=== PATIENT | female | born 1955 | race Caucasian/White ===

== ENCOUNTER 2022-12-29 09:11 | Day surgery (SDC) | payer OTHER, MEDICARE ==
[2022-12-23 09:49] LABS: Absolute Lymphocytes (CBC) 1.8 K/uL (0.7-4.9); Hematocrit 40.6 % (36.0-45.0); Lymphocytes % 27.4 % (15.3-44.8); MCV 90.8 fL (80-100); MPV 6.5 fL (7.6-11.3); Platelets 341 thou/uL (152-406); RBC Red Blood Cell Count 4.47 M/uL (3.86-4.86)
--- NOTE | 2022-12-23 09:50 | EKG ---
Test Date: 2022-12-23 Test Time: 09:39:02 Construction Safety Manager: LAVELL MEASUREMENT RESULTS: Intervals: Rate: 68 DC: 146 QRSD: 78 QT: 404 QTc: 429 [place]: P: 19 DC: 146 QRS: 10 T: 29 INTERPRETIVE STATEMENTS: Normal sinus rhythm Low voltage QRS Cannot rule out Anterior infarct, age undetermined Abnormal ECG No previous ECG available for comparison Electronically Signed On 12-23-22 09:46:42 CDT by Joseph Carmichael
[2022-12-23 09:56] LABS: Protime INR 0.93
[2022-12-23 10:03] LABS: Potassium 3.9 mEq/L (3.5-5.1)
--- NOTE | 2022-12-23 10:15 | RAD REPORT ---
EXAM DESCRIPTION: RAD - Chest Pa And Lat (2 Views) - 12/23/2022 10:03 am CLINICAL HISTORY: PRE OP Chest pain. COMPARISON: <Comparisons> FINDINGS: The lungs are clear. The heart is normal in size. No displaced fractures. IMPRESSION: No acute or concerning finding suspected. The USPSTF recommends annual screening for lung cancer with low-dose CT (LDCT) in adults aged 50 to 80 years who have a 20 pack-year smoking history and currently smoke or have quit within the past 15 years.
[~2022-12-29 09:11] MED LIST: BUPIVACAINE 0.25% PF 10 ML VIAL ONE
[2022-12-29] MEDS ORDERED: CEFAZOLIN SODIUM 2 GM/VIAL ONE (09:39)
[2022-12-29] MEDS ORDERED: NA CHLORIDE 0.9% 1,000 ML ONE (09:40)
[2022-12-29] MEDS ORDERED: propofoL 200 MG/20 ML VIAL IV ONE (10:26)
[2022-12-29] MEDS ORDERED: FENTANYL CITR 100 MCG/2 ML ONE (10:26)
[2022-12-29] MEDS ORDERED: LIDOCAINE 2% MPF 5 ML VIAL ONE (10:26)
[2022-12-29] MEDS ORDERED: ONDANSETRON 4 MG/2 ML VIAL ONE (10:26)
[2022-12-29] MEDS ORDERED: MIDAZOLAM HCL 2 MG/2 ML INJ ONE (10:26)
[2022-12-29] MEDS ORDERED: KETOROLAC 30 MG/ML INJ ONE (10:26)
[2022-12-29] MEDS ORDERED: METOCLOPRAMIDE 10 MG/2mL INJ ONE (11:28)
--- NOTE | 2022-12-29 12:08 | P.BOP ---
Preoperative diagnosis: left carpal tunnel syndrome Postoperative diagnosis: same Primary procedure: Left open carpal tunnel release Rug Renovator: NONE,NONE Estimated blood loss: 3 cc Specimen: none Findings: see dictation Anesthesia: General Complications: None Implants: none Fluids & blood products: per anesthesia record Transferred to: Recovery Room Condition: Good
--- NOTE | 2022-12-29 12:10 | P.OP ---
Preoperative diagnosis: left carpal tunnel syndrome Postoperative diagnosis: same Primary procedure: Left open carpal tunnel release Anesthesia: general LMA Estimated blood loss: 3 cc Specimen: none Findings: see dictation Operative Technique: Reason for Surgery: The patient had physical exam findings as well as EMG findings consistent with left carpal tunnel syndrome. I discussed with the patient at length risks and benefits associated with the procedure. They expressed understanding and elected proceed with operative treatment. Description of Procedure: After informed consent was obtained the patient was identified in the preoperative holding area. The left upper extremity was marked patient. Patient then brought back to the operating room transferred the operative table in supine fashion and placed under anesthesia. The left upper extremity was exsanguinated and the tourniquet was inflated to 250 mmHg. Approximately a 3 cm longitudinal incision was made just ulnar to the thenar crease. Dissection was then taken down to the palmar fascia which was identified. A [place] elevator was then placed just deep to the palmar fascia to protect the median nerve at all times. A 15 blade was then used to release the palmar fascia and transverse carpal ligament leaving the [place]den elevator to protect the nerve at all times. Any remaining fascial bands were then released using a blunt tip Metzenbaum scissor. The tips were him superficially to protect the median nerve at all times. The wound was then irrigated thoroughly with normal saline. The skin was approximated using a 5-0 Prolene. Sterile dressings were applied and patient was awakened and transferred to PACU in stable condition. Postoperative plan: The patient will follow-up in 1 to 2 weeks for wound check and suture removal. They may begin to work on range of motion exercises at this time. Complications: None Implants: none Fluids & blood products: per anesthesia record Transferred to: Recovery Room Condition: Good
[2022-12-29 13:26] VITALS: BP 150/79; TEMP 96.5; O2SAT 99
== END 2022-12-29 13:20 | disposition home or self-care (01) ==
LOC: OR 09:11
PROVIDERS: ATTEND Orthopaedic Surgery Sports Medicine
PROC: 01N50ZZ Release Median Nerve, Open Approach (ICD-10-PCS; principal; 2022-12-29 11:00)
DX: G56.02 Carpal tunnel syndrome, left upper limb (principal); M86.02 Acute hematogenous osteomyelitis, humerus; E11.9 Type 2 diabetes mellitus without complications; E78.00 Pure hypercholesterolemia, unspecified; I10 Essential (primary) hypertension; M85.80 Other specified disorders of bone density and structure, unspecified site
CPT/HCPCS: 93005; 85025; 80048; 36415; 85610; 82947; 85730; 71046; 64721; J2704; J2765; J2001; J2250; J3010; J2405; J7030

== ENCOUNTER 2023-01-28 09:28 | Day surgery (SDC) | payer OTHER, MEDICARE ==
[2023-01-25 09:06] LABS: Absolute Lymphocytes (CBC) 1.6 K/uL (0.7-4.9); Hematocrit 39.9 % (36.0-45.0); Lymphocytes % 25.4 % (15.3-44.8); MCV 91.6 fL (80-100); MPV 6.8 fL (7.6-11.3); Platelets 323 thou/uL (152-406); RBC Red Blood Cell Count 4.36 M/uL (3.86-4.86)
[2023-01-25 09:10] LABS: Protime INR 0.89
[2023-01-28] MEDS ORDERED: NA CHLORIDE 0.9% 1,000 ML ONE (09:36)
[2023-01-28] MEDS ORDERED: CEFAZOLIN SODIUM 1 GM/VIAL ONE ×2 (09:37→10:22)
[2023-01-28] MEDS ORDERED: BUPIVACAINE 0.25% PF 10 ML VIAL ONE (09:45)
[2023-01-28] MEDS ORDERED: FENTANYL CITR 100 MCG/2 ML ONE (09:54)
[2023-01-28] MEDS ORDERED: ONDANSETRON 4 MG/2 ML VIAL ONE (09:54)
[2023-01-28] MEDS ORDERED: propofoL 200 MG/20 ML VIAL IV ONE (09:54)
[2023-01-28] MEDS ORDERED: LIDOCAINE 2% MPF 5 ML VIAL ONE (09:54)
[2023-01-28] MEDS ORDERED: EPHEDRINE SULF 50 MG/ML VIAL ONE (10:28)
--- NOTE | 2023-01-28 10:59 | P.BOP ---
Preoperative diagnosis: right carpal tunnel syndrome Postoperative diagnosis: same Primary procedure: right open carpal tunnel release Electronics Inspector: NONE,NONE Estimated blood loss: 3 cc Specimen: none Findings: see dictation Anesthesia: General Complications: None Implants: none Fluids & blood products: per anesthesia record; TT: 13 mins @ 250 mmHg Transferred to: Recovery Room Condition: Good
--- NOTE | 2023-01-28 11:01 | P.OP ---
Preoperative diagnosis: right carpal tunnel syndrome Postoperative diagnosis: same Primary procedure: right open carpal tunnel release Anesthesia: general LMA Estimated blood loss: 3 cc Specimen: none Findings: see dictation Operative Technique: Reason for Surgery: Renetta had physical exam findings as well as EMG findings consistent with right carpal tunnel syndrome. I discussed with the patient at length risks and benefits associated with the procedure. They expressed understanding and elected proceed with operative treatment. Description of Procedure: After informed consent was obtained the patient was identified in the preoperative holding area. The right upper extremity was marked patient. Patient then brought back to the operating room transferred the operative table in supine fashion and placed under general LMA anesthesia. The right upper extremity was exsanguinated and the tourniquet was inflated to 250 mmHg. Approximately a 3 cm longitudinal incision was made just ulnar to the thenar crease. Dissection was then taken down to the palmar fascia which was identified. A [place] elevator was then placed just deep to the palmar fascia to protect the median nerve at all times. A 15 blade was then used to release the palmar fascia and transverse carpal ligament leaving the [place] elevator to protect the nerve at all times. Any remaining fascial bands were then released using a blunt tip Metzenbaum scissor. The tips were him superficially to protect the median nerve at all times. The wound was then irrigated thoroughly with normal saline. The skin was approximated using a 5-0 Prolene. Sterile dressings were applied and patient was awakened and transferred to PACU in stable condition. Postoperative plan: The patient will follow-up in 1 to 2 weeks for wound check and suture removal. They may begin to work on range of motion exercises at this time. Complications: None Implants: none Fluids & blood products: per anesthesia record Transferred to: Recovery Room Condition: Good
[2023-01-28 11:46] VITALS: O2SAT 100
[2023-01-28] MEDS ORDERED: TRAMADOL HCL 50 MG TAB ONE (12:09)
[2023-01-28 13:37] VITALS: BP 134/81; TEMP 97
== END 2023-01-28 12:50 | disposition home or self-care (01) ==
LOC: OR 09:28
PROVIDERS: ATTEND Orthopaedic Surgery Sports Medicine
PROC: 01N50ZZ Release Median Nerve, Open Approach (ICD-10-PCS; principal; 2023-01-28 10:45)
DX: G56.01 Carpal tunnel syndrome, right upper limb (principal); E11.9 Type 2 diabetes mellitus without complications; E78.00 Pure hypercholesterolemia, unspecified; I10 Essential (primary) hypertension; M25.541 Pain in joints of right hand
CPT/HCPCS: 85025; 80048; 36415; 85610; 82947 ×2; 85730; 64721; J2704; J2001; J3010; J2405; J7030; J0690 ×2